=== PATIENT | female | born 1985 | race Caucasian/White ===

== ENCOUNTER 2017-10-03 08:28 | Day surgery (SDC) | payer BC ==
[2017-10-03] MEDS ORDERED: NS 1000 ML 1,000 ML ONE (08:55)
[2017-10-03] MEDS ORDERED: DIPRIVAN VIAL 20 ML ONE (09:27)
[2017-10-03] MEDS ORDERED: DIPRIVAN VIAL 10 ML ONE (09:43)
[2017-10-03 10:09] VITALS: BP 121/81
== END 2017-10-03 10:12 | disposition home or self-care (01) ==
LOC: SURG1 08:28
PROVIDERS: ATTEND Surgery
PROC: 0DB68ZX Excision of Stomach, Via Natural or Artificial Opening Endoscopic, Diagnostic (ICD-10-PCS; principal; 2017-10-03 10:00)
PROC: 0DB98ZX Excision of Duodenum, Via Natural or Artificial Opening Endoscopic, Diagnostic (ICD-10-PCS; principal; 2017-10-03 10:00)
PROC: 0DB48ZX Excision of Esophagogastric Junction, Via Natural or Artificial Opening Endoscopic, Diagnostic (ICD-10-PCS; principal; 2017-10-03 10:00)
PROC: 0DJ08ZZ Inspection of Upper Intestinal Tract, Via Natural or Artificial Opening Endoscopic (ICD-10-PCS; principal; 2017-10-03 10:00)
DX: K44.9 Diaphragmatic hernia without obstruction or gangrene (principal); K20.8 Other esophagitis; K29.60 Other gastritis without bleeding; R10.84 Generalized abdominal pain; K21.9 Gastro-esophageal reflux disease without esophagitis
CPT/HCPCS: A4217; J3490